=== PATIENT | female | born 1970 | race Caucasian/White ===

== ENCOUNTER 2024-06-29 19:22 | Emergency (ER) | payer MEDICARE, OTHER, SELFPAY ==
[2024-06-29 19:24] VITALS: BP 171/93
--- NOTE | 2024-06-29 19:50 | ED.GENMED ---
History of Present Illness
General
Chief Complaint: Rabies
Source: patient
Exam Limitations: none
Time Seen by Provider: 06/29/24 19:39
History of Present Illness
History of Present Illness:
54-year-old female presents for potential bat exposure. She states she was sleeping and was walking up by her cat who was after a bat. Patient is uncertain whether or not the back came in contact with her. She is here for rabies prophylaxis.
Past History
Past History
ED Past Medical History: None
ED Past Surgical History: None
Social History
Tobacco: Non-smoker
Alcohol: None
Living: with family
Phy Exam
Physical Exam
Physical Exam:
General: Well-appearing female nontoxic no story distress
Skin is intact
Neurologic alert conversing appropriately normal
Course
Orders/Labs/Results
Orders:
Orders
06/29/24 19:48
Rabies Immune Globulin/Pf [HyperRAB] 1,036 unit IM NOW STA
Rabies Vaccine (Pcec)/Pf [Rabavert Rabies Vacc W-Diluent] 2.5 unit IM .ONCE ONE
Vital Signs
Initial and Last Documented VS:
Initial Vital Signs
Temp Pulse Resp BP Pulse Ox
98.5 F 88 16 171/93 94
06/29/24 19:24 06/29/24 19:24 06/29/24 19:24 06/29/24 19:24 06/29/24 19:24
Last Documented Vital Signs
Temp Pulse Resp BP Pulse Ox
98.5 F 88 16 171/93 94
06/29/24 19:24 06/29/24 19:24 06/29/24 19:24 06/29/24 19:24 06/29/24 19:24
MDM/Problems Addressed
Differential Diagnosis Includes:
Patient was exposed to a bat in her apartment while she was sleeping. Discussed risks and benefits of rabies prophylaxis. Patient decided to go forward with rabies prophylaxis. Rabies Ig and vaccine was ordered. She will be sent to the
outpatient infusion center for the remaining 3 vaccines
*Critical Care Note
Total Time (30-74mins, 75-104mins- exclusive of procedures): Not Applicable
ED Attending Note
-
Portions of this chart may have been created with voice recognition software.� Occasional wrong word or��sound alike� substitutions may have occurred due to the inherent limitations of voice recognition software.
Discharge Plan
Departure
Patient Disposition: Home (Routine Discharge)
Date of Disposition: 06/29/24
Time of Disposition: 19:51
Patient with high blood pressure during this ER visit?: No
Discharge Problem:
Rabies, need for prophylactic vaccination against
Instructions: Rabies
Prescriptions:
New
RabAvert (PF) 2.5 unit Suspension For Reconstitution
1 ml IM . DIRECTED Qty: 3 0RF
Rx Instructions:
See Rabies Vaccine Post Exposure Prophylaxis Instruction Sheet for Dosing Instructions
Stand Alone Forms: Rabies Vaccine Post Exp Dosing
Activity Restrictions/Additional Instructions:
Please follow-up with the outpatient infusion center for the remaining 3 vaccines. Return if needed
Interventions
Interventions:
*Risk Screen - Suicide Last Done: 06/29/24 19:34
*General Assessment Last Done: 06/29/24 19:34
*Neglect/Abuse Screening Last Done: 06/29/24 19:34
ED- Fall Risk Assessment Last Done: 06/29/24 19:35
*ED COVID-19 Vaccine History Last Done: 06/29/24 19:34
Discharge Date and Time
Print Language: [id number]
[2024-06-29] MEDS: RABAVERT RABIES VACC W-DILUENT 2.5 UNIT IM (20:30)
[2024-06-29] MEDS: HyperRAB 1036 UNIT IM (20:31)
== END 2024-06-29 20:40 | disposition home or self-care (01) ==
LOC: EMR 19:22
PROVIDERS: EMERGENCY PHYSICIAN Student in an Organized Health Care Education/Training Program; FAMILY PHYSICIAN Family Medicine
DX: Z20.3 Contact with and (suspected) exposure to rabies (principal); Z23 Encounter for immunization; Z88.5 Allergy status to narcotic agent; Z88.0 Allergy status to penicillin; Z88.2 Allergy status to sulfonamides; Z88.8 Allergy status to other drugs, medicaments and biological substances; Z88.6 Allergy status to analgesic agent; Z88.1 Allergy status to other antibiotic agents; Z91.040 Latex allergy status
CPT/HCPCS: 99284; 96372; 90471; 90375; 90675

== ENCOUNTER 2024-07-12 13:53 | Outpatient (RCR) | payer OTHER, MEDICARE, SELFPAY ==
[2024-07-02 14:43] VITALS: BP 143/68
[2024-07-02] MEDS: RABAVERT RABIES VACC W-DILUENT 2.5 UNIT IM (14:48)
[2024-07-05 13:50] VITALS: BP 169/90
[2024-07-05] MEDS: RABAVERT RABIES VACC W-DILUENT 2.5 UNIT IM (13:54)
[2024-07-12] MEDS: RABAVERT RABIES VACC W-DILUENT 2.5 UNIT IM (14:20)
[2024-07-12 14:26] VITALS: BP 170/82
== END 2024-07-29 23:59 | disposition home or self-care (01) ==
LOC: OID 13:53
PROVIDERS: ATTENDING PHYSICIAN Student in an Organized Health Care Education/Training Program; FAMILY PHYSICIAN Family Medicine
DX: Z20.3 Contact with and (suspected) exposure to rabies (principal); Z23 Encounter for immunization
CPT/HCPCS: 90471; 90675